=== PATIENT | female | born 1940 | race Asian ===

== ENCOUNTER → 2018-05-25 | Outpatient (CLI) | payer MEDICARE, OTHER | END | disposition home or self-care (01) | LOC: RADPV 09:27 | PROVIDERS: ATTEND Internal Medicine | DX: N18.3 Chronic kidney disease, stage 3 (moderate) (principal); R22.1 Localized swelling, mass and lump, neck; I51.7 Cardiomegaly | CPT/HCPCS: 76770; 76999 ==

== ENCOUNTER 2022-06-03 04:02 | Emergency (ER) | payer MEDICARE, OTHER ==
[~2022-06-03] VITALS: Ht 154.9 cm; Wt 52.2 kg
[2022-06-03] MEDS ORDERED: FLUT16H NASAL (04:09)
[2022-06-03] MEDS ORDERED: FLUT1BLS3 IH (04:09)
[2022-06-03] MEDS ORDERED: TELM1TAB4 PO (04:09)
[2022-06-03] MEDS ORDERED: OMEP20CA12 PO (04:09)
[2022-06-03] MEDS ORDERED: GABA-1181 PO (04:09)
[2022-06-03] MEDS ORDERED: TELM1TAB31 PO (04:09)
[2022-06-03] MEDS ORDERED: LORA10TA7 PO (04:09)
[2022-06-03] MEDS ORDERED: CETI10TA58 PO (04:09)
[2022-06-03] MEDS ORDERED: ATOR20TA65 PO (04:09)
[2022-06-03] MEDS ORDERED: ALBUTEROL SULFATE 2.5 MG/0.5 ML NEB SOLUTION NEB ONE (05:15)
[2022-06-03] MEDS ORDERED: IPRATROPIUM BROMIDE 0.5 MG/2.5 ML NEB SOLUTION NEB ONE (05:15)
[2022-06-03 05:39] LABS: BASOPHILS % (AUTO) 0.2 % (0.0-2.0); EOSINOPHILS % (AUTO) 0.4 % (1.0-6.0); HEMATOCRIT 41.2 % (36-46); HEMOGLOBIN 13.7 g/dL (12.0-16.0); LYMPHOCYTES # (AUTO) 0.9 K/uL (1.0-4.8); LYMPHOCYTES % (AUTO) 14.7 % (22.0-44.0); MEAN CORPUSCULAR HGB CONC 33.4 G/dL (31.0-37.0); MEAN CORPUSCULAR VOLUME 96 fL (80-100); MONOCYTES # (AUTO) 0.8 K/uL (0.1-1.0); NEUTROPHILS # (AUTO) 4.2 K/uL (1.8-7.7); NEUTROPHILS % (AUTO) 71.7 % (40.0-70.0); PLATELET COUNT (AUTO) 187 K/uL (150-450); RED BLOOD CELL COUNT(AUTO) 4.29 MIL/uL (4.00-5.20); RED CELL DISTRIBUTION WIDTH 13.5 % (11.5-14.5)
[2022-06-03 05:50] LABS: COVID AG,FIA SOURCE NASOPHARYNGEAL
[2022-06-03 06:01] LABS: BILIRUBIN,TOTAL 0.7 mg/dL (0.1-1.0); CALCIUM, TOTAL 8.8 mg/dL (8.8-10.5); CREATININE 1.15 mg/dL (0.60-1.30); POTASSIUM 3.4 mmol/L (3.5-5.1); TOTAL PROTEIN, SERUM 7.2 g/dL (6.4-8.2)
[2022-06-03 06:06] LABS: ALBUMIN 3.5 g/dL (3.4-5.0)
[2022-06-03] MEDS ORDERED: ACETAMINOPHEN 500 MG TABLET PO ONE (06:30)
[2022-06-03] MEDS ORDERED: ALBUTEROL SULFATE HFA 90 MCG/PUFF 8 GM INHALER IH ONE (06:30)
[2022-06-03] MEDS ORDERED: AZITHROMYCIN 500 MG TABLET PO ONE (06:30)
[2022-06-03 06:31] VITALS: BP 150/88
[2022-06-03] MEDS ORDERED: AZIT250T9 PO (06:32)
== END 2022-06-03 06:44 | disposition home or self-care (01) ==
LOC: EMS 04:04
DX: J44.1 Chronic obstructive pulmonary disease with (acute) exacerbation (principal); I10 Essential (primary) hypertension; Z88.0 Allergy status to penicillin; Z98.890 Other specified postprocedural states; Z20.822 Contact with and (suspected) exposure to COVID-19
CPT/HCPCS: 99285; 71045; 87426; 80053; 85025; 36415; 94640; Q9967; J3535; J7613